=== PATIENT | female | born 1990 | race African-American/Black ===

== ENCOUNTER 2020-11-07 08:24 | Outpatient (CLI) | payer BC ==
[2020-11-07 16:56] LABS: SARS-CoV-2 PCR by NAA Not Detected (NotDetected)
== END 2020-11-07 08:25 | disposition home or self-care (01) ==
LOC: LABBT 08:24
PROVIDERS: ATTEND Family Medicine
DX: Z20.822 Contact with and (suspected) exposure to COVID-19 (principal)
CPT/HCPCS: 87635; U0003; U0005